=== PATIENT | male | born 1955 | race African-American/Black ===

== ENCOUNTER 2016-05-09 18:28 | Emergency (ER) | payer OTHER ==
[2016-05-09] MEDS ORDERED: ASPIRIN 81 MG CHEW TAB ONE (18:35)
== END 2016-05-09 22:45 | disposition home or self-care (01) ==
LOC: ER 18:28
DX: R07.89 Other chest pain (principal); E11.9 Type 2 diabetes mellitus without complications; I25.2 Old myocardial infarction; I10 Essential (primary) hypertension
CPT/HCPCS: 36415; 71010; 80053; 82550; 83735; 84484; 85025; 85610; 85730; 93005